=== PATIENT | female | born 1960 | race Caucasian/White ===

== ENCOUNTER 2017-01-29 07:02 | Emergency (ER) | payer BC ==
[2017-01-29 07:13] VITALS: BP 153/97
--- NOTE | 2017-01-29 07:29 | UC ---
Allergic Reaction HPI - HPI Summary HPI Summary: 56 yo female with onset of hives last PM Ears red and swollen scalp on fire hives scattered over body no lip/hand/feet edema no swollen tongue no throat tightness/pain no cough/sob denies f/c - History of Current Complaint Chief Complaint: UCAllergicReaction Stated Complaint: HEAD IS BURNING, FACE TIGHTNESS Time Seen by Provider: 01/29/17 07:18 Hx Obtained From: Patient Onset/Duration: Gradual Onset, Lasting Hours Severity Initially: Mild Severity Currently: Moderate Pain Intensity: 2 - very umcomforatable due to pruritis Pain Scale Used: 0-10 Numeric Location: Diffuse Character: Pruritus, Hives Aggravating Factor(s): Heat Alleviating Factor(s): Cold Associated Signs And Symptoms: Positive: Rash. Negative: Abdominal Pain, Chest Pain, Cough Wheezing, Diaphoresis, Difficulty Breathing, Hoarseness, Lightheadedness, Nausea, Syncope, Throat Tightening, Vomiting - Related Hx Possible Reaction To: Unknown - was at work green party yesterday - Allergies/Home Medications Allergies/Adverse Reactions: Allergies Allergy/AdvReac Type Severity Reaction Status Date / Time Aspirin Allergy Severe facial Verified 01/29/17 07:15 swelling, rash Cephalexin [From Keflex] Allergy Severe swelling, Verified 01/29/17 07:15 rash Chlorhexidine Allergy Severe Rash Verified 01/29/17 07:15 [From ChloraPrep One Step] Ciprofloxacin [From Cipro] Allergy Severe swelling, Verified 01/29/17 07:15 rash Diphenhydramine Allergy Severe facial Verified 01/29/17 07:15 [From Benadryl] swelling Hydrocodone Allergy Severe rash, Verified 01/29/17 07:15 headache Ibuprofen Allergy Severe Swelling Verified 01/29/17 07:15 Isopropyl Alcohol Allergy Severe Rash Verified 01/29/17 07:15 [From ChloraPrep One Step] Lisinopril Allergy Severe facial Verified 01/29/17 07:15 swelling, rash Naproxen Allergy Severe facial Verified 01/29/17 07:15 swelling, rash Oxycodone Allergy Severe rash, Verified 01/29/17 07:15 headache Propoxyphene Allergy Severe Rash, Verified 01/29/17 07:15 [From Darvocet-N] headache Sulfamethoxazole Allergy Severe swelling, Verified 01/29/17 07:15 w/Trimethoprim rash [From Bactrim] PMH/Surg Hx/FS Hx/Imm Hx Previously Healthy: Yes - chronic muscle pains s/p Lisseth Guerrero Other History Of: Negative For: Anticoagulant Therapy - Surgical History Surgical History: Yes Surgery Procedure, Year, and Place: RIGHT BREAST BIOPSY,TUBAL,CARPAL TUNNEL BOTH HANDS,C SECTIONS,ABLASION,TRACHEOTOMY WITH REVERSAL, PEG TUBE IN ABDOMEN WITH REVERSAL, - Family History Known Family History: Positive: Cardiac Disease, Hypertension, Diabetes, Other - brain tumor, CVA - Social History Alcohol Use: None Substance Use Type: None Smoking Status (MU): Never Smoked Tobacco - Immunization History Most Recent Influenza Vaccination: None- allergic Review of Systems Constitutional: Negative Skin: Rash Eyes: Negative ENT: Negative Respiratory: Negative Cardiovascular: Negative Gastrointestinal: Negative Genitourinary: Negative Motor: Negative Neurovascular: Negative Musculoskeletal: Negative Neurological: Negative Psychological: Negative Is Patient Immunocompromised?: No All Other Systems Reviewed And Are Negative: Yes Physical Exam Triage Information Reviewed: Yes Appearance: Well-Appearing, No Pain Distress, Well-Nourished Vital Signs: Initial Vital Signs Temp 100.8 F 01/29/17 07:08 Pulse 115 01/29/17 07:08 Resp 22 01/29/17 07:08 BP 153/97 01/29/17 07:08 Pulse Ox 100 01/29/17 07:08 Vital Signs Reviewed: Yes Eyes: Positive: Conjunctiva Clear ENT: Positive: Hearing grossly normal, Pharynx normal, TMs normal, Uvula midline. Negative: Nasal congestion, Nasal drainage, Tonsillar swelling, Tonsillar exudate, Trismus, Muffled voice, Hoarse voice, Dental tenderness, Sinus tenderness Neck: Positive: Supple, Nontender, No Lymphadenopathy Respiratory: Positive: Lungs clear, Normal breath sounds, No respiratory distress Cardiovascular: Positive: RRR, No Murmur, Tachycardia Abdomen Description: Positive: Nontender. Negative: CVA Tenderness (R), CVA Tenderness (L) Bowel Sounds: Positive: Present Musculoskeletal: Positive: Strength Intact, ROM Intact, No Edema Neurological: Positive: Alert Skin: Positive: rashes - multiple hives/+ dermatographia Allergic Reaction Course/Dx - Differential Dx/Diagnosis Provider Diagnoses: acute urticaria Discharge - Discharge Plan Condition: Stable Disposition: HOME Prescriptions: hydrOXYzine HCL TAB* [Atarax 25 MG TAB*] 25 mg PO QID PRN #12 tab PRN Reason: Itching Prednisone [Deltasone] 40 mg PO DAILY #6 tab Patient Education Materials: Urticaria (ED) Referrals: Braxton Molina MD [Primary Care Provider] - As Soon As Possible Additional Instructions: hold off on allergra while taking the prescription antihistamine You have a low grade temp I am unsure of the cause Recheck if it gets higher or if you develop any new symptoms Your pulse and blood pressure are high I think this is due to the discomfort you are experiencing due to your itching I suggest you get in to see your MD for follow up
[2017-01-29] MEDS: Acetaminophen TAB* 325 MG PO ONE (07:38)
[2017-01-29] MEDS: predniSONE TAB* 20 MG PO ONE (07:39)
== END 2017-01-29 07:41 | disposition home or self-care (01) ==
LOC: UCEAST 07:02
DX: L50.9 Urticaria, unspecified (principal)
CPT/HCPCS: 99212; A9270-GY; G0463; J7512

== ENCOUNTER 2017-02-21 03:12 | Observation (INO) | payer BC ==
[2017-02-21 04:03] LABS: ABS Basophils 0 10^3/ul (0-0.2); ABS Eosinophils 0.1 10^3/ul (0-0.6); ABS Lymphocytes 2.3 10^3/ul (1.0-4.8); ABS Monocytes 0.7 10^3/ul (0-0.8); ABS Neutrophils 9.1 10^3/ul (1.5-7.7); ABS Nucleated RBC 0 10^3/ul; Eosinophil % 0.7 % (0-6); Hematocrit 41 % (35-47); Hemoglobin 13.7 g/dl (12.0-16.0); Lymphocyte % 18.9 % (25-47); Mean Corpuscular HGB Conc 34 g/dl (31-36); Mean Corpuscular Hemoglobin 30 pg (27-31); Mean Corpuscular Volume 89 fL (80-97); Mean Platelet Volume 8 um3 (7.4-10.4); Nucleated Red Blood Cells % 0; Platelet Count 299 10^3/ul (150-450); Red Blood Count 4.57 10^6/ul (4.0-5.4); Red Cell Distribution Width 14 % (10.5-15); White Blood Count 12.3 10^3/ul (3.5-10.8)
[2017-02-21 04:17] LABS: EGFR Non-African American 63.7 (>60)
[2017-02-21] MEDS ORDERED: Iohexol 350* (CONTRAST) 500 ML MDV IV ONE (05:09)
[2017-02-21] MEDS ORDERED: Ondansetron INJ* 2 MG/ML VIAL IV ONE (08:25)
[2017-02-21] MEDS ORDERED: Morphine INJ* 4 MG/ML 1 ML CARPUJECT IV ONE (08:25)
[2017-02-21] MEDS ORDERED: Nitroglycerin TAB 0.4 MG* 0.4 MG TAB SL PRN (08:43)
[2017-02-21] MEDS ORDERED: Acetaminophen TAB* 325 MG PO PRN (08:43)
[2017-02-21] MEDS ORDERED: Al Hydrox/Mg Hydrox/Simet LIQ* 30 ML UDC PO PRN (08:44)
--- NOTE | 2017-02-21 09:52 | RAD ---
Indication: Cough. 2 views of the chest demonstrates no mediastinal shift. Heart is of normal size and configuration. Lung raza appear clear. No evidence of alveolar consolidation is noted. No pneumothorax is noted. IMPRESSION: No active cardiopulmonary disease is noted.
[2017-02-21] MEDS: predniSONE TAB* 20 MG PO SCH (10:16)
--- NOTE | 2017-02-21 10:17 | RAD ---
Indication: Dyspnea. History of DVT. Contrast: Administered 82.3 ml of OMNIPAQUE 350 mg/ml CTA of the chest was performed after IV contrast administration. Coronal and sagittal reconstructed images were obtained. The inferior thyroid lobes are unremarkable. The pulmonary arterial tree is well opacified. No evidence of filling defects are identified to suggest pulmonary embolus. No evidence of aortic dissection is noted. The heart demonstrates no pericardial effusion. The trachea and major bronchi appear patent. The lung raza demonstrate no evidence of alveolar consolidation. No pleural fluid is noted. The lung raza demonstrates mild prominence of the vascular markings may represent vascular congestion. Dependent changes are noted. No alveolar consolidation is noted. The visualized abdominal organs demonstrates calcified granuloma in the dome of the left lobe of liver. There is likely hepatic steatosis. Small water density lesions are noted in the left lobe and right lobe of liver likely representing cysts. The remainder of the abdominal organs are otherwise unremarkable. The bony structures demonstrate mild degenerative disc disease at multiple levels. IMPRESSION: No evidence of pulmonary embolus is noted. No evidence of aortic dissection is noted. There may be vascular congestion with prominent vascular markings. Dependent changes of the lung bases are noted.
[2017-02-21 12:28] LABS: EGFR Non-African American 76.1 (>60)
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
[2017-02-22] MEDS: predniSONE TAB* 20 MG PO SCH (08:08)
[2017-02-22] MEDS: Enoxaparin(*) 40 MG/0.4 ML SYR SUBCUT SCH (08:08)
[2017-02-22 08:11] LABS: Hematocrit 39 % (35-47); Hemoglobin 13.6 g/dl (12.0-16.0); Mean Corpuscular HGB Conc 35 g/dl (31-36); Mean Corpuscular Hemoglobin 31 pg (27-31); Mean Corpuscular Volume 89 fL (80-97); Mean Platelet Volume 8 um3 (7.4-10.4); Platelet Count 251 10^3/ul (150-450); Red Blood Count 4.35 10^6/ul (4.0-5.4); Red Cell Distribution Width 14 % (10.5-15); White Blood Count 9.9 10^3/ul (3.5-10.8)
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
[2017-02-23] MEDS: Enoxaparin(*) 40 MG/0.4 ML SYR SUBCUT SCH (08:51)
[2017-02-23] MEDS: predniSONE TAB* 20 MG PO SCH ×2 (08:53→12:54)
[2017-02-23 11:51] VITALS: BP 144/77
--- NOTE | 2017-02-23 12:12 | RAD ---
HISTORY: Chest pain COMPARISONS: None TECHNIQUE: A 1 day stress/rest myocardial perfusion study was performed, with exercise stress. The exercise portion was performed using the Oli protocol, for a total METs of 7. The stress portion was monitored by Dr. Cabrera. Gated SPECT imaging was performed, with CT-based attenuation correction DOSE: Stress: Technetium 99m tetrofosmin, 26.33 millicuries, injected at 10:08 AM on February 23, 2017 Rest: Technetium 99m tetrofosmin, 10.56 millicuries, injected at 7:11 AM on February 23, 2017 Pharmacologic agent: None FINDINGS: CARDIAC MONITORING: Peak heart rate of 161 bpm, 99% of predicted. Nonspecific ST/2 changes with stress. EF: 72% TID: 0.3 MOTION: Normal motion, with normal wall thickening. PERFUSION: There are no fixed or reversible perfusion defects. OTHER: None IMPRESSION: NO FIXED OR REVERSIBLE PERFUSION DEFECTS. ASSESSMENT: LOW RISK. Based on imaging criteria from ACC/AHA 2002. Guideline Update for the Management of Patient's with Chronic Stable Angina, table 23. Noninvasive Risk Stratification. CPT II Codes: [id number]
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
[2017-02-25] MEDS ORDERED: predniSONE TAB* 20 MG PO SCH (09:00)
== END 2017-02-23 14:25 | disposition home or self-care (01) ==
LOC: ED 03:12 → MEDTELE 08:14
PROVIDERS: ADMIT Internal Medicine; ATTEND Internal Medicine
DX: R07.89 Other chest pain (principal); I31.3 Pericardial effusion (noninflammatory); I10 Essential (primary) hypertension; L50.9 Urticaria, unspecified; Z86.69 Personal history of other diseases of the nervous system and sense organs
CPT/HCPCS: 36415; 71046; 71275; 78452; 80048; 80053; 83735; 84484; 85025; 85027; 85379; 86038; 87502; 93005; 93017; 96374; 96375; 99285; A9270-GY; A9502; G0378; J1650; J2270; J2405; J7512; Q9967

== ENCOUNTER 2017-07-27 05:18 | Emergency (ER) | payer BC ==
[2017-07-27] MEDS ORDERED: diPHENhydraMINE IV* 50 MG/ML 1 ml VIAL (BENADRYL) IV ONE (06:05)
[2017-07-27] MEDS ORDERED: Ketorolac INJ* 30 MG/ML 1 ML VIAL IV PUSH ONE (06:05)
[2017-07-27] MEDS ORDERED: LORazepam INJ* 2 MG/ML 1 ML VIAL ONE (06:42)
[2017-07-27] MEDS ORDERED: LORazepam INJ* 2 MG/ML 1 ML VIAL IV PUSH ONE (06:45)
[2017-07-27 06:55] LABS: ABS Basophils 0.1 10^3/ul (0-0.2); ABS Eosinophils 0.3 10^3/ul (0-0.6); ABS Lymphocytes 1.4 10^3/ul (1.0-4.8); ABS Monocytes 0.5 10^3/ul (0-0.8); ABS Neutrophils 4.5 10^3/ul (1.5-7.7); ABS Nucleated RBC 0 10^3/ul; Hematocrit 40 % (35-47); Hemoglobin 13.8 g/dl (12.0-16.0); Lymphocyte % 20.8 % (25-47); Mean Corpuscular HGB Conc 35 g/dl (31-36); Mean Corpuscular Hemoglobin 31 pg (27-31); Mean Corpuscular Volume 88 fL (80-97); Mean Platelet Volume 8.7 um3 (7.4-10.4); Nucleated Red Blood Cells % 0; Platelet Count 260 10^3/ul (150-450); Red Blood Count 4.52 10^6/ul (4.00-5.40); Red Cell Distribution Width 14 % (10.5-15); White Blood Count 6.7 10^3/ul (3.5-10.8)
[2017-07-27 06:59] LABS: INR 0.87 (0.77-1.02)
[2017-07-27 07:10] LABS: EGFR Non-African American 70.9 (>60)
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
--- NOTE | 2017-07-27 08:17 | RAD ---
Indication: Chest pain. Single frontal view of the chest performed at 0545 hours was reviewed. Comparison is made with previous exam dated February 21, 2017. No mediastinal shift is noted. Heart is of normal size and configuration. Lung raza appear clear. IMPRESSION: NO ACTIVE CARDIOPULMONARY DISEASE IS NOTED.
[2017-07-27 08:44] VITALS: BP 108/77
== END 2017-07-27 08:43 | disposition home or self-care (01) ==
LOC: ED 05:18
DX: R07.89 Other chest pain (principal); F41.9 Anxiety disorder, unspecified; Z87.898 Personal history of other specified conditions; Z86.79 Personal history of other diseases of the circulatory system; Z88.8 Allergy status to other drugs, medicaments and biological substances; Z88.3 Allergy status to other anti-infective agents; Z88.5 Allergy status to narcotic agent
CPT/HCPCS: 36415; 71045; 80053; 83605; 83880; 84484; 85025; 85610; 86140; 93005; 96374; 96375; 99283; J1200; J1885; J2060

== ENCOUNTER 2018-11-06 23:56 | Emergency (ER) | payer BC ==
[2018-11-07] MEDS ORDERED: Al Hydrox/Mg Hydrox/Simet LIQ* 30 ML UDC PO ONE ×2 (02:19→04:56)
[2018-11-07] MEDS ORDERED: Lidocaine 2% VISCOUS* 15 ML UDC PO ONE ×2 (02:19→04:56)
[2018-11-07 02:21] LABS: ABS Basophils 0.1 10^3/ul (0-0.2); ABS Eosinophils 0.2 10^3/ul (0-0.6); ABS Lymphocytes 1.7 10^3/ul (1.0-4.8); ABS Monocytes 0.6 10^3/ul (0-0.8); ABS Neutrophils 7.7 10^3/ul (1.5-7.7); Eosinophil % 2.2 %; Hematocrit 42 % (35-47); Hemoglobin 14.5 g/dL (12.0-16.0); Lymphocyte % 16.5 %; Mean Corpuscular HGB Conc 34 g/dL (31-36); Mean Corpuscular Hemoglobin 30 pg (27-31); Mean Corpuscular Volume 88 fL (80-97); Nucleated Red Blood Cells % 0.1; Platelet Count 279 10^3/uL (150-450); Red Blood Count 4.79 10^6 /uL (3.70-4.87); Red Cell Distribution Width 14 % (10-15); White Blood Count 10.4 10^3/uL (3.5-10.8)
[2018-11-07 02:24] LABS: Albumin 3.9 g/dL (3.2-5.2); Calcium 8.7 mg/dL (8.6-10.3); Potassium 4.2 mmol/L (3.5-5.0); Total Bilirubin 0.4 mg/dL (0.2-1.0)
[2018-11-07] MEDS ORDERED: fentaNYL* 50 MCG/ML 2 ML VIAL (100 MCG VIAL) IV SLOW PU ONE (02:25)
[2018-11-07] MEDS ORDERED: NS 0.9% 1000 ML** 1,000 ML IV ONE (02:25)
[2018-11-07] MEDS ORDERED: Ondansetron INJ* 2 MG/ML VIAL IV ONE (02:25)
[2018-11-07 02:30] LABS: Albumin/Globulin Ratio 1.3 (1-3); BUN/Creatinine Ratio 19.2 (8-20); C Reactive Protein 5.29 mg/L (<8.01); EGFR African American 98.7 (>60); EGFR Non-African American 81.6 (>60); Total Protein 6.9 g/dL (6.4-8.9)
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
[2018-11-07] MEDS ORDERED: Iohexol 300* (CONTRAST) 10 ML SDV IV ONE (02:54)
[2018-11-07 05:07] LABS: Urine Appearance Clear; Urine Bacteria 1+ (Absent); Urine Bilirubin Negative (Negative); Urine Blood 2+ (Negative); Urine Color Yellow; Urine Glucose Negative (Negative); Urine Ketones Negative (Negative); Urine Nitrite Positive (Negative); Urine Protein Negative (Negative); Urine Red Blood Cell Trace(0-2/hpf) (Absent); Urine Specific Gravity 1.029 (1.010-1.030); Urine Squamous Epithelial Cell Present (Absent); Urine Urobilinogen Negative (Negative); Urine White Blood Cell Trace(0-5/hpf) (Absent)
[2018-11-07 05:41] VITALS: BP 148/98
--- NOTE | 2018-11-09 08:31 | PN ---
Progress Note - Progress Note Date of Service: 12/07/18 Note: Patient was called 8:30 AM on 11/09/18 Urine culture preliminary grew Escherichia coli 100,000 Sensitivities show sensitive to Macrobid Patient has multiple allergies Patient states she will nut picker Macrobid today and has a follow-up with Dr. Molina Symptoms have improved Prescription for Macrobid 100 mg twice daily 5 days sent to pharmacy is
== END 2018-11-07 05:39 | disposition home or self-care (01) ==
LOC: ED 23:56
DX: R10.13 Epigastric pain (principal); K76.0 Fatty (change of) liver, not elsewhere classified; D25.9 Leiomyoma of uterus, unspecified; I10 Essential (primary) hypertension; I34.1 Nonrheumatic mitral (valve) prolapse; K21.9 Gastro-esophageal reflux disease without esophagitis; F41.9 Anxiety disorder, unspecified; Z88.6 Allergy status to analgesic agent; Z88.1 Allergy status to other antibiotic agents; Z88.5 Allergy status to narcotic agent; Z88.2 Allergy status to sulfonamides; Z88.8 Allergy status to other drugs, medicaments and biological substances; Z79.899 Other long term (current) drug therapy
CPT/HCPCS: 36415; 74177; 80053; 81003; 81015; 83605; 83690; 84484; 85025; 86140; 87077; 87086; 87186; 93005; 96374; 96375; 99283; A9270-GY; J2405; J3010; Q9967

== ENCOUNTER 2019-01-28 09:06 | Day surgery (SDC) | payer BC ==
[~2019-01-28 09:06] MED LIST: Buffered Lidocaine 1% SYRIN* 1 ML/SYRINGE INTRADERM ONE; Famotidine IV* 10 MG/ML 2 ML (20 mg) IV ONE; Lactated Ringers 1000 ML Bag* 1,000 ML IV SCH
[2019-01-28] MEDS ORDERED: Famotidine IV* 10 MG/ML 2 ML (20 mg) ONE (10:12)
[2019-01-28] MEDS ORDERED: Lidocaine 2% PF * 5 ML VIAL ONE (10:14)
[2019-01-28] MEDS ORDERED: Ondansetron INJ* 2 MG/ML VIAL ONE (10:14)
[2019-01-28] MEDS ORDERED: Propofol* 10 MG/ML 20 ML BTL ONE (10:14)
[2019-01-28] MEDS ORDERED: Midazolam* 1 MG/ML 5 ML VIAL (5 MG) ONE (10:15)
[2019-01-28] MEDS ORDERED: KETAMINE HCL* 50 MG/ML 10 ML VIAL ONE (10:15)
[2019-01-28] MEDS ORDERED: Naloxone* 0.4 MG/ML 1 ML VIAL IV PRN (10:32)
[2019-01-28] MEDS ORDERED: Ondansetron INJ* 2 MG/ML VIAL IV PRN (10:32)
[2019-01-28 11:42] VITALS: BP 134/64
--- NOTE | 2019-01-28 23:28 | PRO ---
CC: Braxton Molina MD* ESOPHAGOGASTRODUODENOSCOPY REPORT: DATE OF PROCEDURE: 01/28/19 INDICATION FOR PROCEDURE: Epigastric pain. PROCEDURE PERFORMED: Complete esophagogastroduodenoscopy with biopsies. MEDICATIONS GIVEN: Please see anesthesia record. DESCRIPTION OF PROCEDURE: After the EGD procedure including the risks, benefits , and alternatives with the risks not limited to perforation, surgery, missed lesions, and/or were explained to the patient, written informed consent was obtained, IV medication was given, and a bite-block was placed between the teeth. The adult Olympus gastroscope was then inserted into the patient's oropharynx into the tubular esophagus. There was very mild Z-line variability. This was biopsied and associated 2-3 cm hiatal hernia was appreciated. The scope was advanced through the lower esophageal sphincter into the stomach. Direct views showed gastritis. This was biopsied and CLOtested. On retroflexion, few gastric polyps were seen and sampled. Any aforementioned hiatal hernia was visualized. The scope was advanced through the widely patent pylorus into the duodenal bulb, C-loop, distal duodenum, and these were normal in appearance. The scope was then removed from the patient. She tolerated the procedure well. She returned to the recovery room in stable condition. IMPRESSION: 1. Complete esophagogastroduodenoscopy with biopsies. 2. Mild Z-line variability, biopsied. 3. A 2 to 3 cm hiatal hernia. 4. Gastritis, biopsied and CLOtested. 5. Gastric polyps, sampled. RECOMMENDATIONS: We will place the patient on PPI daily. I suspect this is likely NSAID gastritis and recommend continued abstinence. Her symptoms seem to be improving since starting the PPI. I would recommend planning on 3 months of treatment pending the biopsy results and then trying to get to a p.r.n. H2 sammie if possible. Continue to avoid aspirin, Motrin, ibuprofen, and NSAIDs. [id number]/[facility] #: [id number] [facility]
== END 2019-01-28 11:58 | disposition home or self-care (01) ==
LOC: OR 09:06
PROVIDERS: ATTEND Internal Medicine Gastroenterology
DX: K29.70 Gastritis, unspecified, without bleeding (principal); R10.13 Epigastric pain; K31.7 Polyp of stomach and duodenum; K44.9 Diaphragmatic hernia without obstruction or gangrene; R94.5 Abnormal results of liver function studies; I34.1 Nonrheumatic mitral (valve) prolapse; K76.0 Fatty (change of) liver, not elsewhere classified
CPT/HCPCS: 87077; 88305; J2250; J2405; J2704

== ENCOUNTER 2019-03-07 07:11 | Emergency (ER) | payer BC ==
--- OUTSIDE RECORDS SUMMARY | 2019-03-07 07:17 | XMS REPORT | Continuity of Care Document ---
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 Problems Description No Information Available Social History Type Date Description Comments Sex Female Tobacco Use Start: Unknown Patient has never smoked Smoking Status Reviewed: 11/19/18 Patient has never smoked Allergies, Adverse Reactions, Alerts Active Allergies Reaction Severity Comments Date Aspirin 11/10/2018 Sulfamethoxazole / Trimethoprim 11/10/2018 Chloraprep 11/10/2018 Ciprofloxacin 11/10/2018 Fentanyl decreased resp w/ sm 11/10/2018 dose Hydrocodone 11/10/2018 Ibuprofen 11/10/2018 Cephalexin 11/10/2018 Lisinopril 11/10/2018 Lorcet Nausea and Vomiting 11/10/2018 Naproxen 11/10/2018 Oxycodone 11/10/2018 Propoxyphene 11/10/2018 Medications Active Medications SIG Qnty Indications Ordering Provider Date Pantoprazole Sodium 1 tablet by mouth 30tabs Kevon Shields DO 12/28/2018 in in the morning 40mg Tablets DR 30 minutes before first meal. Ranitidine HCL 1 by mouth twice 60tabs K29.00 Tamara Cabello NP 11/09/2018 150mg a day Tablets Claritin take one tablet Unknown 10mg Tablets by mouth every day Epipen 2-Luke use as directed Unknown 0.3mg/0.3ML Solution Auto-Inject Xyzal Allergy 24HR 1 by mouth every Unknown 5mg pm Tablets Immunizations Description No Information Available Vital Signs Date Vital Result Comment 11/19/2018 1:58pm Height 66 inches 5'6" Weight 242.00 lb BP Systolic 161 mmHg BP Diastolic 105 mmHg Heart Rate 102 /min BMI (Body Mass Index) 39.1 kg/m2 Results Test Acquired Date Facility Test Result H/L Range Note Laboratory test 01/28/2019 [facility] [place] SEE RESULT 1 finding Pathology Order BELOW Laboratory test 01/28/2019 [facility] [place] Clotest SEE RESULT 2 finding BELOW Iron & Iron 11/19/2018 [facility] [place] Iron 87 g/dL Normal 50-212 Binding Capacity Unsaturated Iron Binding < 343 g/dL Total Iron Binding Capacity 358 g/dL Normal 250-450 Transferrin 256 mg/dL Normal 203-362 % Iron Saturation 24 % Normal 15-55 Laboratory test finding 11/19/2018 [facility] [place] Ceruloplasmin 30.7 mg/dL 3 Alpha 1 Antitrypsin A1a 100 mg/dL 100 - 190 4 Mitochondrial AB AMA M2 Igg <0.1 U 5 Smooth Muscle Antibody Negative Negative 6 Hepatitis Panel, Acute 11/09/2018 N2N/CCD Import Hep A Ab, IgM Negative 7 HBsAg Screen Negative Hep B Core Ab, IgM Negative Hep C Virus Ab 0.2 s/coratio 0.0-0.9 8 Lab Results 11/09/2018 N2N/CCD Import Total Protein 7.1 g/dL 6.4-8.3 Albumin 4.6 g/dL 3.8-5.5 Globulin 2.5 g/dL 2.0-4.8 A/G Ratio 1.8 CALC 0.6-2.3 Alk. Phosphatase 77 U/L 30-110 Alt (SGPT) 70 U/L High 7-35 Ast (Sgot) 46 U/L High 5-34 Total Bilirubin 0.6 mg/dL 0.2-1.3 Direct Bilirubn 0.2 mg/dL 0.0-0.6 Indirect Bilirubin 0.40 mg/dL 0.10-1.00 Lab Results 11/09/2018 N2N/CCD Import Appearance clear Color yellow Glucose, Urine (a/[facility]/CTX) neg Bilirubin neg Ketones neg SP Grav 1.025 1 Blood neg PH 5.5 1 Protein neg Urobil 1.0 1 Nitrite neg Leukocytes ([facility]/Centrex) neg Lab Results 11/07/2018 N2N/CCD Import Lactic Acid 1.8 mmol/L 0.5-2.0 9 CBC Auto Diff 11/07/2018 N2N/CCD Import White Blood Count 10.4 10^3/uL 3.5-10.8 Red Blood Count 4.79 10^6/uL 3.70-4.87 Hemoglobin 14.5 g/dL 12.0-16.0 Hematocrit 42 % 35-47 Mean Corpuscular Volume 88 fL 80-97 Mean Corpuscular Hemoglobin 30 pg 27-31 Mean Corpuscular HGB Conc 34 g/dL 31-36 Red Cell Distribution Width 14 % 10-15 Platelet Count 279 10^3/uL 150-450 Mean Platelet Volume 9.0 fL 7.4-10.4 Abs Neutrophils 7.7 10^3/uL 1.5-7.7 Abs Lymphocytes 1.7 10^3/uL 1.0-4.8 Abs Monocytes 0.6 10^3/uL 0-0.8 Abs Eosinophils 0.2 10^3/uL 0-0.6 Abs Basophils 0.1 10^3/uL 0-0.2 Abs Nucleated RBC 0.0 10^3/uL Granulocyte % 74.2 % Lymphocyte % 16.5 % Monocyte % 5.8 % Eosinophil % 2.2 % Basophil % 1.3 % Nucleated Red Blood Cells % 0.1 1 Comp Metabolic Panel 11/07/2018 N2N/CCD Import Sodium 134 mmol/L Low 135- 145 Potassium 4.2 mmol/L 3.5-5.0 Chloride 107 mmol/L 101-111 Co2 Carbon Dioxide 15 mmol/L Low 22-32 Anion Gap 12 mmol/L High 2-11 Calcium 8.7 mg/dL 8.6-10.3 Albumin 3.9 g/dL 3.2-5.2 Total Bilirubin 0.40 mg/dL 0.2-1.0 Glucose 139 mg/dL High 70-100 Blood Urea Nitrogen 14 mg/dL 6-24 Creatinine 0.73 mg/dL 0.51-0.95 BUN/Creatinine Ratio 19.2 1 8-20 Total Protein 6.9 g/dL 6.4-8.9 Globulin 3.0 g/dL 2-4 Albumin/Globulin Ratio 1.3 1 1-3 Alkaline Phosphatase 74 U/L 34-104 Alt 63 U/L High 7-52 Ast 41 U/L High 13-39 Egfr Non- 81.6 1 Egfr 98.7 1 10 Lab Results 11/07/2018 N2N/CCD Import Lipase 13 U/L 11.0-82.0 C Reactive Protein 5.29 mg/L Troponin I 0.00 ng/mL 11 Urinalysis Profile 11/07/2018 N2N/CCD Import Urine Color Yellow Urine Appearance Clear Urine Specific [place] 1.029 1 1.010-1.030 Urine pH 5.0 1 5-9 Urine Urobilinogen Negative Urine Ketones Negative Urine Protein Negative Urine Leukocytes Negative Urine Blood 2+ Abnormal Urine Nitrite Positive Abnormal Urine Bilirubin Negative Urine Glucose Negative Urine White Blood Cell Trace(0-5/hpf) Urine Red Blood Cell Trace(0-2/hpf) Urine Bacteria 1+ Abnormal Urine Squamous Epithelial Cell Present Abnormal Urine Culture And 11/07/2018 N2N/CCD Import Urine Culture See Result 12 Sensitivities Below 1 SEE RESULT BELOW Name: KYLAH SLADE : [address]: Kevon Shields DO Acct: [id number] Unit: [id number] AGE: 58 Location: OR Re01/28/19 SEX: F [place] [facility] [place]C: [id number] JAMILA: 01/28/19- SUBM DR: Kevon Shields DO REQ: [id number] RECD: 01/28/19-1246 STATUS: WSAPNA VERDIN DR: Braxton Molina MD _ ORDERED: LEVEL 4/3 FINAL DIAGNOSIS 1. Small bowel, duodenum, biopsy: -- Small bowel mucosa with normal villous architecture and no significant pathologic abnormality. -- No villous blunting or increased lamina propria lymphoplasmacytic infiltrate is identified. 2. Stomach, polyps, biopsy: -- Gastric mucosa with reactive foveolar hyperplasia and intestinal metaplasia. -- No dysplasia identified. 3. Distal esophagus, biopsies: -- Gastroesophageal transition zone mucosa with extensive goblet cell/ intestinal metaplasia. -- No features of active reflux esophagitis identified. -- No dysplasia identified. PRE-OPERATIVE DIAGNOSIS 1) Rule out strickland splinting; 2) rule out Sharma's CONTINUED ON NEXT PAGE DEPARTMENT OF PATHOLOGY, [address] [place] [address] Tigre Carrero M.D. Director [facility] # [id number] POST-OPERATIVE DIAGNOSIS EGD: esophagus - mild z line variable biopsy; 2-3 cm hiatal hernia; gastric - gastritis; biopsy; and ДМИТРИЙ test; gastric polyps; duodenum - normal GROSS DESCRIPTION 1. The specimen is received in formalin labeled, Biopsy Duodenum, and consists of two hammonds-pink irregular soft tissue fragments measuring 0.2 x 0.1 x 0.1 cm and 0.4 x 0.3 x 0.2 cm which are submitted entirely in one cassette. 2. The specimen is received in formalin labeled, Biopsy Gastric Polyps, and consists of two hammonds-pink irregular soft tissue fragments measuring 0.3 x 0.1 x 0.1 cm and 0.6 x 0.2 by up to 0.2 cm which are submitted entirely in one cassette. 3. The specimen is received in formalin labeled, Biopsy Distal Esophagus, and consists of a 0.6 x 0.4 x 0.2 cm aggregate of hammonds-pink irregular soft tissue fragments which is submitted entirely in one cassette. Signed by and Reported on: Tigre Carrero MD 1055 END OF REPORT DEPARTMENT OF PATHOLOGY, [address] [place] [address], [place] [address] Tigre Carrero M.D. Director [facility] # [id number] SEE RESULT BELOW Name: KYLAH SLADE : [address]: Kevon Shields DO Acct: [id number] Unit: [id number] AGE: 58 Location: [place] Re01/28/19 SEX: F [place] [facility] [place]C: [id number] JAMILA: 01/28/19- SUBM DR: Kevon Shields DO REQ: [id number] RECD: 01/28/191246 STATUS: SWAPNA VERDIN DR: Braxton Molina MD _ ORDERED: LEVEL 4/3 FINAL DIAGNOSIS 1. Small bowel, duodenum, biopsy: -- Small bowel mucosa with normal villous architecture and no significant pathologic abnormality. -- No villous blunting or increased lamina propria lymphoplasmacytic infiltrate is identified. 2. Stomach, polyps, biopsy: -- Gastric mucosa with reactive foveolar hyperplasia and intestinal metaplasia. -- No dysplasia identified. 3. Distal esophagus, biopsies: -- Gastroesophageal transition zone mucosa with extensive goblet cell/ intestinal metaplasia. -- No features of active reflux esophagitis identified. -- No dysplasia identified. PRE-OPERATIVE DIAGNOSIS 1) Rule out strickland splinting; 2) rule out Sharma's CONTINUED ON NEXT PAGE DEPARTMENT OF PATHOLOGY, [address] [place], [place] [id number] Tigre Carrero M.D. Director [facility] # [id number] POST-OPERATIVE DIAGNOSIS EGD: esophagus - mild z line variable biopsy; 2-3 cm hiatal hernia; gastric - gastritis; biopsy; and ДМИТРИЙ test; gastric polyps; duodenum - normal GROSS DESCRIPTION 1. The specimen is received in formalin labeled, Biopsy Duodenum, and consists of two hammonds-pink irregular soft tissue fragments measuring 0.2 x 0.1 x 0.1 cm and 0.4 x 0.3 x 0.2 cm which are submitted entirely in one cassette. 2. The specimen is received in formalin labeled, Biopsy Gastric Polyps, and consists of two hammonds-pink irregular soft tissue fragments measuring 0.3 x 0.1 x 0.1 cm and 0.6 x 0.2 by up to 0.2 cm which are submitted entirely in one cassette. 3. The specimen is received in formalin labeled, Biopsy Distal Esophagus, and consists of a 0.6 x 0.4 x 0.2 cm aggregate of hammonds-pink irregular soft tissue fragments which is submitted entirely in one cassette. Signed by and Reported on: Tigre Carrero MD 1055 END OF REPORT DEPARTMENT OF PATHOLOGY, [facility] [address] [place], [place] [address] Tigre Carrero M.D. Director [facility] # [id number] SEE RESULT BELOW Name: KYLAH SLADE : [address]: Kevon Shields DO Acct: [id number] Unit: [id number] AGE: 58 Location: OR Re01/28/19 SEX: F [place] [facility] SPEC: [id number] JAMILA: 01/28/19- SUBM DR: Kevon Shields DO REQ: [id number] RECD: 01/28/19 STATUS: SWAPNA VERDIN DR: Braxton Molina MD _ ORDERED: LEVEL 4/3 FINAL DIAGNOSIS 1. Small bowel, duodenum, biopsy: -- Small bowel mucosa with normal villous architecture and no significant pathologic abnormality. -- No villous blunting or increased lamina propria lymphoplasmacytic infiltrate is identified. 2. Stomach, polyps, biopsy: -- Gastric mucosa with reactive foveolar hyperplasia and intestinal metaplasia. -- No dysplasia identified. 3. Distal esophagus, biopsies: -- Gastroesophageal transition zone mucosa with extensive goblet cell/ intestinal metaplasia. -- No features of active reflux esophagitis identified. -- No dysplasia identified. PRE-OPERATIVE DIAGNOSIS 1) Rule out strickland splinting; 2) rule out Sharma's CONTINUED ON NEXT PAGE DEPARTMENT OF PATHOLOGY, [address] [place] [address] Tigre Carrero M.D. Director [facility] # [id number] POST-OPERATIVE DIAGNOSIS EGD: esophagus - mild z line variable biopsy; 2-3 cm hiatal hernia; gastric - gastritis; biopsy; and ДМИТРИЙ test; gastric polyps; duodenum - normal GROSS DESCRIPTION 1. The specimen is received in formalin labeled, Biopsy Duodenum, and consists of two hammonds-pink irregular soft tissue fragments measuring 0.2 x 0.1 x 0.1 cm and 0.4 x 0.3 x 0.2 cm which are submitted entirely in one cassette. 2. The specimen is received in formalin labeled, Biopsy Gastric Polyps, and consists of two hammonds-pink irregular soft tissue fragments measuring 0.3 x 0.1 x 0.1 cm and 0.6 x 0.2 by up to 0.2 cm which are submitted entirely in one cassette. 3. The specimen is received in formalin labeled, Biopsy Distal Esophagus, and consists of a 0.6 x 0.4 x 0.2 cm aggregate of hammonds-pink irregular soft tissue fragments which is submitted entirely in one cassette. Signed by and Reported on: Tigre Carrero MD 1055 END OF REPORT DEPARTMENT OF PATHOLOGY, [address] [place] [address] Tigre Carrero M.D. Director [facility] # [id number] 2 SEE RESULT BELOW Name: KYLAH SLADE : [address]: Kevon Shields DO Acct: [id number] Unit: [id number] AGE: 58 Location: OR Re01/28/19 SEX: F Status[place] [facility] SPEC: [id number] JAMILA: 01/28/19-[address]: Kevon Shields DO REQ: [id number] RECD: 01/28/19 STATUS: GUILLERMO VERDIN DR: Braxton Molina MD _ SOURCE: GAS ANTRUM SPDES: ORDERED: Clotest Procedure Result Reported Site Clotest Final 01/29/19- 748 ML Clotest Negative * ML - Main Lab . END OF REPORT DEPARTMENT OF PATHOLOGY, [address] [place] [address] Tigre Carrero M.D. Director [facility] # [id number] SEE RESULT BELOW Name: KYLAH SLADE : [address]: Kevon Shields DO Acct: [id number] Unit: [id number] AGE: 58 Location: OR Re01/28/19 SEX: F Status: REG SDC SPEC: [id number] JAMILA: 01/28/19-105 [facility] DR: Kevon Shields DO REQ: [id number] RECD: 01/28/19 STATUS: GUILLERMO VERDIN DR: Braxton Molina MD _ SOURCE: GAS ANTRUM SPDESC: ORDERED: Clotest Procedure Result Reported Site Clotest Final 01/29/19- 748 ML Clotest Negative * ML - Main Lab . END OF REPORT DEPARTMENT OF PATHOLOGY, [address] [place] [address] Tigre Carrero M.D. Director [facility] # [id number] 3 REFERENCE VALUE 20.0 - 51.0 Test Performed by: [place] [address] Blocker Hand: Bogdan Gonzalez M.D. Ph.D.; CLIA# [id number] 4 Test Performed by: [facility] [place] [address] Blocker Hand: Bogdan Gonzalez M.D. Ph.D.; CLIA# [id number] 5 REFERENCE VALUE <0.1 (Negative) Test Performed by: [facility] [place] [address] Blocker Hand: Bogdan Gonzalez M.D. Ph.D.; CLIA# [id number] 6 ADDITIONAL INFORMATION This test was developed and its performance characteristics determined by [facility] in a manner consistent with CLIA requirements. This test has not been cleared or approved by the U.S. Food and Drug Administration. Test Performed by: [facility] [place] [address] Blocker Hand: Bogdan Gonzalez M.D. Ph.D.; CLIA# [id number] 7 1 sst 8 Negative: < 0.8 Indeterminate: 0.8 - 0.9 Positive: > 0.9 The CDC recommends that a positive HCV antibody result be followed up with a HCV Nucleic Acid Amplification test (259460). 9 Specimen hemolyzed. Result may not be valid. [facility] Severe Sepsis and Septic Shock Management Bundle Measure requires all lactic acids initially measuring >2.0 mmol/L be repeated. 10 Because ethnic data is not always readily available, this report includes an eGFR for both -Americans and non- Americans. The National Kidney Disease Education Program (NKDEP) does not endorse the use of the MDRD equation for patients that are not between the ages of 18 and 70, are , have extremes of body size, muscle mass, or nutritional status, or are non- or non-. According to the National Kidney Foundation, irrespective of diagnosis, the stage of the disease is based on the level of kidney function: Stage Description GFR(mL/min/1.73 m(2)) 1 Kidney damage with normal or decreased GFR 90 2 Kidney damage with mild decrease in GFR 60-89 3 Moderate decrease in GFR 30-59 4 Severe decrease in GFR 15-29 5 Kidney failure <15 (or dialysis) 11 Troponin-I testing on Plasma Separator Tubes (PST) has a known false positive rate of 0.20-0.40%. All positive troponins reflex immediately to secondary confirmatory testing. Using the [employer] DxI 800 Access Immunoassay systems, the 99th percentile upper reference limit was demonstrated to be < 0.03 ng/mL. 12 Specimen hemolyzed. Result may not be valid. [facility] Severe Sepsis and Septic Shock Management Bundle Measure requires all lactic acids initially measuring >2.0 mmol/L be repeated. Procedures Description No Information Available Medical Devices Description No Information Available Encounters Type Date Location Provider Dx Diagnosis Office Visit 11/19/2018 Gastroenterology Kevon Shields, R74.0 Nonspec elev of 2:15p [facility] DO levels of transamns & lactic acid dehydrgnse R10.13 Epigastric pain E88.81 Metabolic syndrome Z88.5 Allergy status to narcotic agent status Assessments Date Code Description Provider 11/19/2018 R74.0 Nonspecific elevation of levels of transaminase Kevon Shields DO and lactic acid dehydrogenase [LDH] 11/19/2018 R10.13 Epigastric pain Kevon Shields DO 11/19/2018 E88.81 Metabolic syndrome Kevon Shields DO 11/19/2018 Z88.5 Allergy status to narcotic agent status Kevon Shields DO Plan of Treatment 11/19/2018 - Kevon Cornelius, DOR74.0 Nonspecific elevation of levels of transaminase and lactic acid dehydrogenase [LDH]New Labs:Iron & Tibc With % Saturation, Ordered: 11/19/18Anti Smooth Muscle, Ordered: 11/19/18Anti Mitochondrial Antibody, Ordered: 11/19/18Ceruloplasmin, Ordered: 11/19/18Alpha-1 -Antitrypsin, Ordered: 11/19/18R10.13 Epigastric painE88.81 Metabolic tqxsiflqV42.5 Allergy status to narcotic agent status Functional Status Description No Information Available Mental Status Description No Information Available Referrals Description No Information Available
--- OUTSIDE RECORDS SUMMARY | 2019-03-07 07:17 | XMS REPORT | Continuity of Care Document ---
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 Problems Description No Information Available Social History [...] Result H/L Range Note Laboratory test 01/28/2019 [facility] Surgical SEE RESULT 1 finding Pathology Order BELOW Laboratory test 01/28/2019 [facility] Clotest SEE RESULT 2 finding BELOW Iron & Iron 11/19/2018 [facility] Iron 87 g/dL Normal 50-212 Binding Capacity Unsaturated Iron Binding < 343 g/dL Total Iron Binding Capacity 358 g/dL Normal 250-450 Transferrin 256 mg/dL Normal 203-362 % Iron Saturation 24 % Normal 15-55 Laboratory test finding 11/19/2018 [facility] Ceruloplasmin 30.7 mg/dL 3 Alpha 1 Antitrypsin [...] Import Appearance clear Color yellow Glucose, Urine (a/[facility]/CTX) neg Bilirubin neg Ketones neg SP Grav 1.025 1 Blood neg PH 5.5 1 Protein neg Urobil 1.0 1 Nitrite neg Leukocytes ([facility]/Centrex) neg Lab Results 11/07/2018 N2N/CCD Import Lactic [...] Color Yellow Urine Appearance Clear Urine Specific [place] 1.029 1 1.010-1.030 Urine pH 5.0 1 [...] [address]: Kevon Shields DO Acct: [id number] Unit: [id number] AGE: 58 Location: OR Re01/28/19 SEX: F Status: [facility] SPEC: [id number] JAMILA: 01/28/19- SUBM DR: Kevon Shields DO REQ: [id number] RECD: 01/28/19-1246 STATUS: SWAPNA VERDIN DR: Braxton Molina MD [...] CONTINUED ON NEXT PAGE DEPARTMENT OF PATHOLOGY, [address] [place] [address] Tigre Carrero M.D. Director [facility] # [id number] POST-OPERATIVE DIAGNOSIS EGD: esophagus - mild z [...] 1055 END OF REPORT DEPARTMENT OF PATHOLOGY, [address] [place] [address], [place] [address] Tigre Carrero M.D. Director [facility] # [id number] SEE RESULT BELOW Name: KYLAH SLADE : [address]: Kevon Shields DO Acct: [id number] Unit: [id number] AGE: 58 Location: OR Re01/28/19 SEX: F Status: [facility] SPEC: [id number] JAMILA: 01/28/19- SUBM DR: Kevon Shields DO REQ: [id number] RECD: 01/28/191246 STATUS: SWAPNA VERDIN DR: Braxton [...] CONTINUED ON NEXT PAGE DEPARTMENT OF PATHOLOGY, [address] [place], [place] [id number] Tigre Carrero M.D. Director [facility] # [id number] POST-OPERATIVE DIAGNOSIS EGD: esophagus - mild z [...] 1055 END OF REPORT DEPARTMENT OF PATHOLOGY, [facility] [place] [place], [place] [address] Tigre Carrero M.D. Director [facility] # [id number] SEE RESULT BELOW Name: KYLAH SLADE : [address]: Kevon Shields DO Acct: [id number] Unit: [id number] AGE: 58 Location: OR Re01/28/19 SEX: F Status: [facility] SPEC: [id number] JAMILA: 01/28/19- SUBM DR: Kevon Shields DO REQ: [id number] RECD: 01/28/19 STATUS: SWAPNA VERDIN DR: Braxton [...] CONTINUED ON NEXT PAGE DEPARTMENT OF PATHOLOGY, [address] [place] [address] Tigre Carrero M.D. Director [facility] # [id number] POST-OPERATIVE DIAGNOSIS EGD: esophagus - mild z [...] one cassette. Signed by and Reported on: Tiger Carrero MD 1055 END OF REPORT DEPARTMENT OF PATHOLOGY, [address] [place] [address] Tigre Carrero M.D. Director [facility] # [id number] 2 SEE RESULT BELOW Name: KYLAH SLADE : [address]: Kevon Shields DO Acct: [id number] Unit: [id number] AGE: 58 Location: OR Re01/28/19 SEX: F Status: [facility] SPEC: [id number] JAMILA: 01/28/19-[address]: Kevon Shields DO REQ: [id number] RECD: 01/28/19 STATUS: GUILLERMO VERDIN DR: Braxotn Molina MD _ SOURCE: GAS ANTRUM SPDES: ORDERED: Clotest Procedure Result Reported Site Clotest Final 01/29/19- 748 ML Clotest Negative * ML - Main Lab . END OF REPORT DEPARTMENT OF PATHOLOGY, [address] [place] [address] Tigre Carrero M.D. Director [facility] # [id number] SEE RESULT BELOW Name: KYLAH SLADE : [address]: Kevon Shields DO Acct: [id number] Unit: [id number] AGE: 58 Location: OR Re01/28/19 SEX: F Status: REG SDC SPEC: [id number] JAMILA: 01/28/19-[address] [facility] [address]: Kevon Shields DO REQ: [id number] RECD: 01/28/19 STATUS: GUILLERMO VERDIN DR: Braxton Molina MD _ SOURCE: GAS ANTRUM SPDESC: ORDERED: Clotest Procedure Result Reported Site Clotest Final 01/29/19- 748 ML Clotest Negative * ML - Main Lab . END OF REPORT DEPARTMENT OF PATHOLOGY, [address] [place] [address] Tigre Carrero M.D. Director [facility] # [id number] 3 REFERENCE VALUE 20.0 - 51.0 Test Performed by: [place] [address] Event Executive: Bogdan Gonzalez M.D. Ph.D.; CLIA# [id number] 4 Test Performed by: [facility] [place] [address] Event Executive: Bogdan Gonzalez M.D. Ph.D.; CLIA# [id number] 5 REFERENCE VALUE <0.1 (Negative) Test Performed by: [facility] [place] [address] Event Executive: Bogdan Gonzalez M.D. Ph.D.; CLIA# [id number] 6 ADDITIONAL INFORMATION This test was developed and its performance characteristics determined by [facility] in a manner consistent with CLIA requirements. This test has not been cleared or approved by the U.S. Food and Drug Administration. Test Performed by: [facility] [place] [address] Event Executive: Bogdan Gonzalez M.D. Ph.D.; CLIA# [id number] 7 1 sst 8 Negative: < 0.8 Indeterminate: 0.8 - 0.9 Positive: > 0.9 The CDC recommends that a positive HCV antibody result be followed up with a HCV Nucleic Acid Amplification test (062499). 9 Specimen hemolyzed. Result may not be valid. [facility] Severe Sepsis and Septic Shock Management [...] immediately to secondary confirmatory testing. Using the [employer] DxI 800 Access Immunoassay systems, the 99th percentile upper reference limit was demonstrated to be < 0.03 ng/mL. 12 Specimen hemolyzed. Result may not be valid. [facility] Severe Sepsis and Septic Shock Management Bundle Measure requires all lactic acids initially measuring >2.0 mmol/L be repeated. Procedures Description No Information Available Medical Devices Description No Information Available Encounters Type Date Location Provider Dx Diagnosis Office Visit 11/19/2018 Gastroenterology Kevon Shields, R74.0 Nonspec elev of 2:15p [facility] DO levels of transamns & lactic acid [...] Z88.5 Allergy status to narcotic agent status Kveon Shields DO Plan of Treatment 11/19/2018 - Kevon Cornelius, DOR74.0 Nonspecific elevation of levels of transaminase and lactic acid dehydrogenase [LDH]New Labs:Iron & Tibc With % Saturation, Ordered: 11/19/18Anti Smooth Muscle, Ordered: 11/19/18Anti Mitochondrial Antibody, Ordered: 11/19/18Ceruloplasmin, Ordered: 11/19/18Alpha-1 -Antitrypsin, Ordered: 11/19/18R10.13 Epigastric painE88.81 Metabolic itiwmmdgA24.5 Allergy status to narcotic agent status Functional Status Description No Information Available Mental Status Description No Information Available Referrals Description No Information Available
[2019-03-07 07:23] VITALS: BP 155/110
--- NOTE | 2019-03-07 07:42 | UC ---
Throat Pain/Nasal Nikolay HPI - HPI Summary HPI Summary: 58-year-old woman comes in with chief complaint of upper respiratory tract infection symptoms. Patient started 4 days ago sore throat. The sore throats got worse over the next couple of days. She's had some chills and sweats. She has tried some rejz-kwz-ucqydnx medicines and her sore throat did improve. Yesterday she had a relatively sudden onset of overall fatigue and sweats. No bodyaches. She is able to swallow and breathe. This morning her voice is hoarse and she still feels fatigued. Patient does have some Rhinorrhea and postnasal drip. - History of Current Complaint Chief Complaint: UCGeneralIllness Stated Complaint: SORE THROAT, HEADACHE Time Seen by Provider: 03/07/19 07:22 Pain Intensity: 4 - Allergies/Home Medications Allergies/Adverse Reactions: Allergies Allergy/AdvReac Type Severity Reaction Status Date / Time aspirin Allergy Facial Verified 03/07/19 07:23 Swelling cephalexin [From Keflex] Allergy Rash Verified 03/07/19 07:23 chlorhexidine Allergy Rash Verified 03/07/19 07:23 ciprofloxacin [From Cipro] Allergy Swelling Verified 03/07/19 07:23 diphenhydramine Allergy Swelling Verified 03/07/19 07:23 [From Benadryl] Of Face,Lips,& Throat fentanyl Allergy See Comment Verified 03/07/19 07:23 hydrocodone Allergy Headache Verified 03/07/19 07:23 and Nausea isopropyl alcohol Allergy Rash Verified 03/07/19 07:23 lisinopril Allergy Swelling Verified 03/07/19 07:23 of Throat NSAIDS (Non-Steroidal Allergy See Comment Verified 03/07/19 07:23 Anti-Inflamma oxycodone Allergy Headache Verified 03/07/19 07:23 and nausea propoxyphene Allergy Headache Verified 03/07/19 07:23 [From Darvocet-N] and nausea sulfamethoxazole Allergy Rash Verified 03/07/19 07:23 [From Bactrim] trimethoprim [From Bactrim] Allergy Rash Verified 03/07/19 07:23 Home Medications: Home Medications Pantoprazole TAB * [Protonix TAB*] 40 mg PO DAILY 03/07/19 [History Confirmed ] PMH/Surg Hx/FS Hx/Imm Hx Previously Healthy: Yes GI/ History: Gastroesophageal Reflux Other History Of: Negative For: Anticoagulant Therapy - Surgical History Surgical History: Yes Surgery Procedure, Year, and Place: RIGHT BREAST BIOPSY, TUBAL LIGATION, CARPAL TUNNEL BOTH HANDS, C SECTIONS, D&C ABLATION, TRACHEOTOMY WITH REVERSAL, PEG TUBE IN ABDOMEN WITH REVERSAL - Family History Known Family History: Positive: Cardiac Disease, Hypertension, Diabetes, Other - brain tumor, CVA - Social History Alcohol Use: None Substance Use Type: None Smoking Status (MU): Never Smoked Tobacco - Immunization History Most Recent Influenza Vaccination: None- allergic Review of Systems All Other Systems Reviewed And Are Negative: Yes Constitutional: Positive: Chills, Fatigue, Other - see hpi Skin: Positive: Negative Eyes: Positive: Negative ENT: Positive: Sore Throat, Nasal Discharge, Sinus Congestion Respiratory: Positive: Negative Cardiovascular: Positive: Negative Gastrointestinal: Positive: Negative Motor: Positive: Negative Neurovascular: Positive: Negative Musculoskeletal: Positive: Negative Neurological: Positive: Negative Psychological: Positive: Negative Is Patient Immunocompromised?: No Physical Exam Triage Information Reviewed: Yes Appearance: No Pain Distress, Well-Nourished, Ill-Appearing - mild Vital Signs: Initial Vital Signs Temp 97.7 F 03/07/19 07:18 Pulse 127 03/07/19 07:18 Resp 22 03/07/19 07:18 BP 155/110 03/07/19 07:18 Pulse Ox 96 03/07/19 07:18 Vital Signs Reviewed: Yes Eye Exam: Normal Eyes: Positive: Conjunctiva Clear ENT: Positive: Pharyngeal erythema, Nasal congestion, Nasal drainage, TMs normal Neck: Positive: Supple Respiratory: Positive: Lungs clear, Normal breath sounds, No respiratory distress Cardiovascular: Positive: Tachycardia Musculoskeletal: Positive: Strength Intact, ROM Intact Neurological: Positive: Alert, Muscle Tone Normal Psychological: Positive: Age Appropriate Behavior Skin Exam: Normal Throat Pain/Nasal Course/Dx - Course Course Of Treatment: DISCUSSED VIRAL VERSES BACTERIAL INFECTIONS AND THE ROLE OF ANTIBIOTICS. THE PATIENT PREFERS TO BE ON ANTIBIOTICS AT THIS TIME. - Differential Dx/Diagnosis Provider Diagnosis: Pharyngitis, Elevated blood pressure reading Discharge ED - Sign-Out/Discharge Documenting (check all that apply): Patient Departure All imaging exams completed and their final reports reviewed: No Studies - Discharge Plan Condition: Stable Disposition: HOME Prescriptions: Amoxicillin PO (*) [Amoxicillin 875 MG (*)] 875 mg PO BID #20 tab Patient Education Materials: Pharyngitis (ED) Forms: *Work Release Referrals: Braxton Molina MD [Primary Care Provider] - Additional Instructions: FOLLOW UP WITH YOUR DOCTOR IF NOT COMPLETELY IMPROVED. Follow-up with your physician to have your blood pressure rechecked to determine if you would benefit from further treatment of hypertension. GET REEVALUATED SOONER IF NOT IMPROVED OR WORSE OR ANY QUESTIONS OR CONCERNS. - Billing Disposition and Condition Condition: STABLE Disposition: Home
[2019-03-07 07:43] LABS: Influenza A Molecular NEGATIVE (Negative); Influenza B Molecular NEGATIVE (Negative)
== END 2019-03-07 07:50 | disposition home or self-care (01) ==
LOC: UCEAST 07:11
DX: J02.9 Acute pharyngitis, unspecified (principal); R53.83 Other fatigue; R09.81 Nasal congestion; R03.0 Elevated blood-pressure reading, without diagnosis of hypertension; K21.9 Gastro-esophageal reflux disease without esophagitis; Z88.6 Allergy status to analgesic agent; Z88.1 Allergy status to other antibiotic agents; Z88.8 Allergy status to other drugs, medicaments and biological substances; Z88.5 Allergy status to narcotic agent; Z88.2 Allergy status to sulfonamides; Z79.899 Other long term (current) drug therapy
CPT/HCPCS: 87651; 99212; G0463